=== PATIENT | female | born 1970 | race Caucasian/White ===

== ENCOUNTER → 2016-10-04 | Day surgery (SDC) | payer OTHER ==
[~2016-10-04] MED LIST: ACETAMINOPHEN 500 MG TAB PO PRN; ALBUTEROL 3 ML DEYVIAL IH PRN; DEXAMETHASONE 4 MG/ML VIAL IVP PRN; DEXAMETHASONE 4 MG/ML VIAL ONE; GLYCOPYRROLATE 0.2 MG/1 ML VIAL ONE; HYDROCODONE/APAP 5/325 TAB PO PRN; KETOROLAC 30 MG/1 ML SDV ONE; LIDO/EPI 1% **Not for Epidural 20 ML MDV ONE; LIDOCAINE 1% 2 ML INJ ID PRN; LIDOCAINE 2% 5 ML SDV ONE; LR 1,000 ML IV ONE; LR 500 ML IV PRN; MEPERIDINE 25 MG/ML SYR IVP PRN; METOCLOPRAMIDE 10 MG/2 ML VIAL IVP PRN; METOCLOPRAMIDE 10 MG/2 ML VIAL ONE; MIDAZOLAM 2 MG/2 ML VIAL ONE; NALOXONE HCL 0.4 MG/ML INJ IVP PRN; ONDANSETRON 4 MG/2 ML VIAL IVP PRN; ONDANSETRON 4 MG/2 ML VIAL ONE; OXYCODONE/APAP 5/325 TAB PO PRN; PROMETHAZINE HCL 25 MG/ML INJ IVP PRN; PROPOFOL/EMULSION 500 MG/50 ML BOTTLE IV ONE; fentaNYL 100 MCG/2 ML INJ IVP PRN; fentaNYL 100 MCG/2 ML INJ ONE
--- NOTE | 2016-10-04 08:26 | PDHPUP ---
History & Physical Update H&P update statement: This history and physical update is based on an assessment of the patient which was completed after admission or registration (within 24 hours), but prior to the surgery/procedure. H&P update: H&P reviewed & patient examined, no change in patient's condition since H&P completed
--- NOTE | 2016-10-04 08:55 | PDANEPAE ---
ANE Past Medical History - Cardiovascular History Hx Hypertension: No Hx Arrhythmias: No Hx Chest Pain: No Hx Coronary Artery / Peripheral Vascular Disease: No Hx CHF / Valvular Disease: No Hx Palpitations: No - Pulmonary History Hx COPD: No Hx Asthma/Reactive Airway Disease: No Hx Recent Upper Respiratory Infection: No Hx Oxygen in Use at Home: No - Neurologic History Hx Cerebrovascular Accident: No Hx Seizures: No Hx Dementia: No - Endocrine History Hx Diabetes: No - Renal History Hx Renal Disorders: No - Liver History Hx Hepatic Disorders: No - Neurological & Psychiatric Hx Hx Neurological and Psychiatric Disorders: No - Cancer History Hx Cancer: No - Congenital Disorder History Hx Congenital Disorders: No - GI History Hx Gastrointestinal Disorders: No - Chronic Pain History Chronic Pain: No ANE Review of Systems - Exercise capacity METS (RN): 5 METS ANE Patient History - Allergies Allergies/Adverse Reactions: erythromycin base [Erythromycin Base] Allergy (Verified 01/17/14 07:37) - Home Medications Home Medications: Adderall 20 mg (RX) 01/17/14 [Last Taken Unknown] Herbals/Supplements -Info Only 09/27/16 [Last Taken Unknown] - NPO status NPO Since - Liquids (Date): 10/03/16 NPO Since - Liquids (Time): 19:30 NPO Since - Solids (Date): 10/03/16 NPO Since - Solids (Time): 19:30 - Smoking Hx Smoking Status: Never smoked - Family Anes Hx Family Hx Anesthesia Complications: NEG ANE Labs/Vital Signs - Vital Signs Blood Pressure: 126/77 Heart Rate: 49 Respiratory Rate: 16 O2 Sat (%): 98 Height: 175.26 cm Weight: 89.811 kg ANE Physical Exam - Airway Neck exam: FROM Mallampati Score: Class 1 Mouth exam: normal dental/mouth exam - Pulmonary Pulmonary: no respiratory distress - Cardiovascular Cardiovascular: regular rate and rhythym - ASA Status ASA Status: II ANE Anesthesia Plan Anesthesia Plan: GA w LMA
--- NOTE | 2016-10-04 10:12 | POSTANESTH ---
Post Anesthetic Evaluation Cardiovascular Status: Normal, Stable Respiratory Status: Normal, Stable Level of Consciousness/Mental Status: Can Participate in Eval Pain Control: Adequate, Prn Tx Ordered Nausea/Vomiting Control: Adequate, Prn Tx Ordered Complications Possibly Related to Anesthesia: None Noted
[2016-10-04 10:45] VITALS: BP 113/78; RESP 17
[2016-10-04 10:58] VITALS: TEMP 97.2
--- NOTE | 2016-10-04 11:03 | POSTOPPROG ---
Post Op Note Date of Operation: 10/04/16 Surgeon: Mariam Hoffman Anesthesiologist: BENNY Anesthesia: LMA Pre-op Diagnosis: EMBEDDED IUD arm Post-op Diagnosis: narrow cervical canal, endomdtrial fibroid Indication: embedded IUD arm Procedure: attempted removeal of IUD arm Findings: narrow lower uterine segment Inf/Abcess present in the surg proc area at time of surgery?: No EBL: Minimal Complications: none
[2016-10-04 11:23] VITALS: PULSE 50; O2SAT 98
--- NOTE | 2016-10-04 20:32 | GOP ---
[f rep st] OPERATIVE REPORT DATE OF OPERATION: 10/04/2016 SURGEON: Mariam Hoffman MD ANESTHESIA: Mercy Baxter MD. General with LMA. PREOPERATIVE DIAGNOSIS: 1. Embedded IUD arm. 2. History of endometrial fibroids. POSTOPERATIVE DIAGNOSIS: 1. Embedded IUD arm. 2. History of endometrial fibroids. PROCEDURE PERFORMED: FINDINGS: Narrow cervical os, narrow lower uterine segment, and inability to visualize the endometr ial cavity. ESTIMATED BLOOD LOSS: Minimal. DESCRIPTION OF PROCEDURE: PROCEDURE: Attempted retrieval of embedded IUD arm. INDICATION FOR PROCEDURE: Patient is a 46-year-old who had a ParaGard IUD removed that had been tony sudhakar 10 years ago. When it was being removed a month ago, ONE arm of the IUD did not come out with day ambriz. Attempt in the office done to remove it was unsuccessful. Attempt again to do it under ult rasound guidance, and at this time it was noted that there was a large intramural/possible endometri al fibroid pushing into the uterus and possibly embedding the IUD. It is felt at this time that out patient hysteroscopic retrieval was necessary to have better visibility to remove the IUD. Patient premedicated with misoprostol the night before. COMPLICATIONS: None. PROCEDURE: With informed consent signed, patient was taken to the operating room and placed under g eneral anesthesia. Prepped and draped in the usual sterile fashion. The cervix was gently dilated to 9 mm; however, I was unable to push the dilator further than about 3-4 cm including with the soun d. I was unable to place the dilators further up into the lower uterine segment. At this point, we decided to do the hysteroscopy; so camera was placed into the lower uterine segment and we had inab ility to pass it past the lower uterine segment. A 5 mm scope was then placed, and I attempted to p lace the IUD retrieval device through the scope into the endometrium, but I was unable to follow thi s with the scope. So, ultimately unable to visualize past the lower uterine segment, likely due to pressure from intramural and possibly submucosal fibroids. Another attempt to re-dilate into the en dometrium was done and unable to pass the dilators further than 3-4 cm. Time spent doing this was a bout 40 minutes, and it was felt that this was not going to be accessible, so procedure was terminat ed. Estimated blood loss was about 50 cc and net fluid deficit ended up being about 600 cc. Patien t placed in supine position, awakened in the operating room, and taken to the recovery room in stabl e condition, having tolerated procedure well. /[id number]/MODL
== END | disposition home or self-care (01) ==
LOC: FSGY 06:28
PROVIDERS: ATTEND Obstetrics & Gynecology Gynecology
PROC: 0UJD8ZZ Inspection of Uterus and Cervix, Via Natural or Artificial Opening Endoscopic (ICD-10-PCS; principal; 2016-10-04 08:30)
PROC: 0UJD7ZZ Inspection of Uterus and Cervix, Via Natural or Artificial Opening (ICD-10-PCS; principal; 2016-10-04 08:30)
DX: Z30.432 Encounter for removal of intrauterine contraceptive device (principal); T83.39XA Other mechanical complication of intrauterine contraceptive device, initial encounter
CPT/HCPCS: 58301; 58562; C1782; J1100; J1885; J2250; J2405; J2704; J2765; J3010